=== PATIENT | female | born 1950 | race Caucasian/White ===

== ENCOUNTER → 2017-07-29 | Day surgery (SDC) | payer BC ==
[~2017-07-29] MED LIST: ALBUTEROL0.63 MG/3 INH; ASPIR 8181 MG PO; BALANCED SALT SOLN (OPTH) 15 ML BTL IO ONE; BUPROPION HCL150 MG PO; CENTRUM SILVER1 EAC3 PO; CLARITIN5 MG PO; FENTANYL CITRATE/PF 100MCG/2 ML INJ ONE; GELATIN SPONGE 12-7MM ONE; HYDRALAZINE HCL25 MG PO; JANUVIA100 MG PO; LIDOCAINE 2% /EPINEPHRINE 20 ML SDV INJ ONE; LIDOCAINE HCL 2% LOCAL INJ 5 ML SDV VIAL INJ ONE; LIPITOR10 MG PO; LOSARTAN POTAS100 MG PO; MAGNESIUM OXID400 MG PO; METFORMIN HCL500 MG PO; MIDAZOLAM HCL 2 MG/2 ML VIAL ONE; NEOMYCIN/POLYMYXIN/DEX (OPTH) 3.5 GM TUBE ONE; NIFEDIPINE ER30 M1 PO; PLAVIX75 MG PO; PROPOFOL IV EMULSION 10 MG/ML 20 ML VIAL ONE; VIT B PO; VIT D3 PO; ZEBETA10 MG PO
== END | disposition home or self-care (01) ==
LOC: OR 13:35
PROVIDERS: ATTEND Ophthalmology
DX: H02.834 Dermatochalasis of left upper eyelid (principal); H02.831 Dermatochalasis of right upper eyelid; I10 Essential (primary) hypertension; E11.9 Type 2 diabetes mellitus without complications; E66.01 Morbid (severe) obesity due to excess calories; K58.9 Irritable bowel syndrome, unspecified; J34.89 Other specified disorders of nose and nasal sinuses; J44.9 Chronic obstructive pulmonary disease, unspecified; E78.5 Hyperlipidemia, unspecified; K21.9 Gastro-esophageal reflux disease without esophagitis; F32.9 Major depressive disorder, single episode, unspecified; Z79.84 Long term (current) use of oral hypoglycemic drugs; Z79.82 Long term (current) use of aspirin; Z79.02 Long term (current) use of antithrombotics/antiplatelets; Z87.891 Personal history of nicotine dependence
CPT/HCPCS: 15823; 36415; 82948; J2001 ×2; J2250

== ENCOUNTER → 2017-12-11 | Day surgery (SDC) | payer BC ==
[2017-11-20 11:34] LABS: BASOPHILS # (AUTO) 0.1 (0.0-0.1); BASOPHILS % 1.2 % (0.0-1.0); EOSINOPHILS # (AUTO) 0.3 (0.0-0.4); EOSINOPHILS % 3.3 % (0.0-6.0); HEMATOCRIT 39.7 % (34.2-44.1); HEMOGLOBIN 12.8 g/dL (12.0-16.0); LYMPHOCYTES # (AUTO) 2.5 (1.0-3.2); LYMPHOCYTES % 25.6 % (18.0-39.1); MEAN CORPUSCULAR HEMOGLOBIN 28.7 pg (28-32); MEAN CORPUSCULAR HGB CONC 32.2 g/dL (31-35); MONOCYTES # (AUTO) 0.9 (0.2-0.8); MONOCYTES % 9.1 % (4.4-11.3); NEUTROPHILS # (AUTO) 5.9 (2.1-6.9); NEUTROPHILS % 60.5 % (38.7-80.0); PLATELET COUNT 301 x10e3/uL (140-360); RED BLOOD COUNT 4.46 x10e6/uL (3.6-5.1); RED CELL DISTRIBUTION WIDTH 13.6 % (11.7-14.4)
[~2017-12-11] MED LIST changes: -BALANCED SALT SOLN (OPTH) 15 ML BTL IO ONE; +CALCIUM600 MG PO; -GELATIN SPONGE 12-7MM ONE; -LIDOCAINE 2% /EPINEPHRINE 20 ML SDV INJ ONE; +METFORMIN HCL1000 M1 PO; -NEOMYCIN/POLYMYXIN/DEX (OPTH) 3.5 GM TUBE ONE; +RANITIDINE HCL150 MG PO; +SUCRALFATE1 GM PO; +VITAMIN B-12500 MCG PO; +VITAMIN D31000 UNI1 PO; +VITAMIN E1000 UNI1 PO
[2017-12-11 09:46] VITALS: BP 135/72
--- NOTE | 2017-12-11 11:19 | Operative Report ---
DATE OF PROCEDURE: December 11, 2017 PROCEDURE PERFORMED: Esophagogastroduodenoscopy. PREOPERATIVE DIAGNOSIS: History of gastric ulcer. POSTOPERATIVE DIAGNOSES 1. Gastric ulcer and gastritis still present. 2. Hiatal hernia with reflux esophagitis. PREOPERATIVE MEDICATIONS: TIVA. DESCRIPTION OF PROCEDURE: Using the [employer] video gastroscope, it was inserted into the patient's oropharynx, advanced to the hypopharynx and down to the esophagus. The mucosal pattern in the esophagus was normal until we got down to the GE junction, where there was evidence of mild inflammation around the GE junction and a hiatal hernia below as before. We entered the stomach, and the gastric ulcer in the fundus of the stomach was healing but still present with an associated severe gastritis around it. The rest of the stomach showed mild gastritis. However, the antrum was normal. Biopsy was obtained in the fundus. The pylorus was visualized and entered. The duodenal bulb and postbulbar duodenum were found to be within normal limits. The endoscope was then withdrawn back up into the stomach and back up into the esophagus, hypopharynx, oropharynx and out of the patient's mouth, and the procedure was ended. In conclusion, we have findings of slightly healing gastric ulcer, but still present, with associated gastritis. Hiatal hernia and reflux esophagitis were also seen, which were seen on prior examination. Job#: [id number]
== END | disposition home or self-care (01) ==
LOC: OR 07:47
PROVIDERS: ATTEND Internal Medicine Gastroenterology
DX: K25.3 Acute gastric ulcer without hemorrhage or perforation (principal); K29.00 Acute gastritis without bleeding; K21.0 Gastro-esophageal reflux disease with esophagitis; K44.9 Diaphragmatic hernia without obstruction or gangrene; Z01.810 Encounter for preprocedural cardiovascular examination; Z01.812 Encounter for preprocedural laboratory examination; E11.9 Type 2 diabetes mellitus without complications; Z79.84 Long term (current) use of oral hypoglycemic drugs; K57.30 Diverticulosis of large intestine without perforation or abscess without bleeding; Z86.010 Personal history of colon polyps; Z87.891 Personal history of nicotine dependence; Z79.82 Long term (current) use of aspirin
CPT/HCPCS: 36415 ×2; 43239; 82948; 85025; 88305; 93005; J2001; J2250; J2704

== ENCOUNTER → 2018-01-08 | Day surgery (SDC) | payer BC ==
[2018-01-06 10:30] LABS: BASOPHILS # (AUTO) 0.1 (0.0-0.1); BASOPHILS % 1.1 % (0.0-1.0); EOSINOPHILS # (AUTO) 0.3 (0.0-0.4); EOSINOPHILS % 3.9 % (0.0-6.0); HEMATOCRIT 38.3 % (34.2-44.1); HEMOGLOBIN 12.5 g/dL (12.0-16.0); LYMPHOCYTES # (AUTO) 2.2 (1.0-3.2); LYMPHOCYTES % 27.5 % (18.0-39.1); MEAN CORPUSCULAR HEMOGLOBIN 28.5 pg (28-32); MEAN CORPUSCULAR HGB CONC 32.6 g/dL (31-35); MEAN CORPUSCULAR VOLUME 87.4 fL (81-99); MONOCYTES # (AUTO) 0.9 (0.2-0.8); MONOCYTES % 11.2 % (4.4-11.3); NEUTROPHILS # (AUTO) 4.5 (2.1-6.9); NEUTROPHILS % 55.6 % (38.7-80.0); PLATELET COUNT 283 x10e3/uL (140-360); RED BLOOD COUNT 4.38 x10e6/uL (3.6-5.1); RED CELL DISTRIBUTION WIDTH 13.5 % (11.7-14.4)
[~2018-01-08] MED LIST changes: -LIDOCAINE HCL 2% LOCAL INJ 5 ML SDV VIAL INJ ONE
[2018-01-08 11:10] VITALS: BP 133/73
--- NOTE | 2018-01-08 13:24 | Operative Report ---
DATE OF PROCEDURE: January 08, 2018 PROCEDURE PERFORMED: Esophagogastroduodenoscopy. PREOPERATIVE DIAGNOSIS: Past history of gastric ulcer. This is to document healing of the ulceration. POSTOPERATIVE DIAGNOSIS: Changes compatible with Kirkpatrick's esophagus in the lower esophagus, sitting above a hiatal hernia as before. PROCEDURE: The stomach was then entered and insufflated with air. The mucosal pattern in the cardia, fundus, body of the antrum was viewed. In the fundus of the stomach, the ulceration that was seen on the last examination of 6 weeks ago has since healed. There is a residual gastritis, however. Biopsies were obtained looking for H. pylori infection. The pylorus was visualized and entered. The duodenal bulb and postbulbar duodenum were found to be within normal limits. The endoscope was then withdrawn back up into the stomach, again documenting healing of the ulceration except for a gastritis in that spot. The endoscope was then withdrawn back up into the esophagus where biopsies were obtained looking for Kirkpatrick's esophagus. The procedure was then ended. In conclusion, we had findings of a healed gastric ulceration, gastritis residual still present, hiatal hernia and changes of reflux esophagitis and probably Kirkpatrick's esophagus. Job#: [id number] EV
--- NOTE | 2018-02-19 14:08 | Operative Report ---
DATE OF PROCEDURE: January 08, 2018 PROCEDURE PERFORMED: Esophagogastroduodenoscopy. PREOPERATIVE DIAGNOSES 1. History of Kirkpatrick's esophagus. 2. Hiatal hernia. 3. Gastric ulcer. POSTOPERATIVE DIAGNOSES 1. Kirkpatrick's esophagus. 2. Hiatal hernia. 3. Gastritis. 4. Healed gastric ulcer. PREOPERATIVE MEDICATIONS: Consisted of TIVA anesthesia. Using the [employer] video gastroscope, it was inserted in the patient's oropharynx, advanced to the hypopharynx and down to the esophagus. The mucosal pattern in the esophagus was normal though we had been some changes of Kirkpatrick's esophagus right above the GE junction. Biopsies were obtained. There was a hiatal hernia present which was unchanged from before. The stomach was entered and insufflated with air. The mucosa pattern of the cardia, fundus, body, and antrum was viewed. There was evidence of a residual gastritis, but the gastric ulcer has since healed. Biopsy was obtained in the antrum to look for the H. pylori infection. The pylorus was visualized and entered. The duodenal bulb and postbulbar duodenum were found to be within normal limits. The endoscope was then withdrawn back up into the stomach, retroflexed viewing the cardia and fundus below. Again, gastritis was seen and the hiatal hernia. The endoscope was then placed back in the body of the stomach and then slowly withdrawn back up into the esophagus, hypopharynx, oropharynx and out of the patient's mouth. The procedure was ended. In conclusion, we had findings of Kirkpatrick's esophagus as before, hiatal hernia as before, healed gastric ulcer, and gastritis still present. Job#: [id number]
== END | disposition home or self-care (01) ==
LOC: OR 07:25
PROVIDERS: ATTEND Internal Medicine Gastroenterology
DX: Z09 Encounter for follow-up examination after completed treatment for conditions other than malignant neoplasm (principal); Z87.11 Personal history of peptic ulcer disease; K29.70 Gastritis, unspecified, without bleeding; K44.9 Diaphragmatic hernia without obstruction or gangrene; K21.0 Gastro-esophageal reflux disease with esophagitis; E11.9 Type 2 diabetes mellitus without complications; Z79.84 Long term (current) use of oral hypoglycemic drugs; Z01.810 Encounter for preprocedural cardiovascular examination; Z01.812 Encounter for preprocedural laboratory examination; I10 Essential (primary) hypertension; F17.210 Nicotine dependence, cigarettes, uncomplicated; I83.90 Asymptomatic varicose veins of unspecified lower extremity; Z86.73 Personal history of transient ischemic attack (TIA), and cerebral infarction without residual deficits; Z79.02 Long term (current) use of antithrombotics/antiplatelets
CPT/HCPCS: 36415 ×2; 43239; 82948; 85025; 93005; J2250; J2704